=== PATIENT | male | born 1970 ===

== ENCOUNTER → 2018-02-20 | Day surgery (SDC) | payer OTHER ==
[~2018-02-20] MED LIST: COLACE100 MG PO; PERCOCET 5-3251 EACH PO
== END | disposition home or self-care (01) ==
LOC: ADM 02-18 14:15 → CIR.AMB 07:00
DX: A63.0 Anogenital (venereal) warts (principal)

== ENCOUNTER → 2020-01-31 07:26 | Outpatient (CLI) | payer OTHER | END | disposition home or self-care (01) | LOC: LAB 07:26 | PROVIDERS: ATTEND Internal Medicine Hematology & Oncology | DX: D50.8 Other iron deficiency anemias (principal); I10 Essential (primary) hypertension; D51.1 Vitamin B12 deficiency anemia due to selective vitamin B12 malabsorption with proteinuria; D51.8 Other vitamin B12 deficiency anemias; D51.3 Other dietary vitamin B12 deficiency anemia ==

== ENCOUNTER 2020-06-27 07:57 | Outpatient (CLI) | payer OTHER | END 2020-06-27 07:58 | disposition home or self-care (01) | LOC: LAB 07:57 | PROVIDERS: ATTEND Internal Medicine Hematology & Oncology | DX: D63.1 Anemia in chronic kidney disease (principal); N18.2 Chronic kidney disease, stage 2 (mild); D50.8 Other iron deficiency anemias; I10 Essential (primary) hypertension; R74.02 Elevation of levels of lactic acid dehydrogenase [LDH]; K76.89 Other specified diseases of liver; D51.8 Other vitamin B12 deficiency anemias; D59.8 Other acquired hemolytic anemias; D55.0 Anemia due to glucose-6-phosphate dehydrogenase [G6PD] deficiency; D51.3 Other dietary vitamin B12 deficiency anemia ==

== ENCOUNTER 2020-11-04 08:30 | Outpatient (CLI) | payer OTHER | END 2020-11-04 08:44 | disposition home or self-care (01) | LOC: LAB 08:30 | PROVIDERS: ATTEND Internal Medicine Hematology & Oncology | DX: D50.8 Other iron deficiency anemias (principal); R79.89 Other specified abnormal findings of blood chemistry; K76.89 Other specified diseases of liver; I10 Essential (primary) hypertension; R74.02 Elevation of levels of lactic acid dehydrogenase [LDH]; D51.8 Other vitamin B12 deficiency anemias; R97.0 Elevated carcinoembryonic antigen [CEA]; R97.8 Other abnormal tumor markers; D59.8 Other acquired hemolytic anemias; D55.0 Anemia due to glucose-6-phosphate dehydrogenase [G6PD] deficiency; D51.3 Other dietary vitamin B12 deficiency anemia; D51.1 Vitamin B12 deficiency anemia due to selective vitamin B12 malabsorption with proteinuria ==

== ENCOUNTER 2021-05-12 07:21 | Outpatient (CLI) | payer OTHER | END 2021-05-12 07:38 | disposition home or self-care (01) | LOC: LAB 07:21 | PROVIDERS: ATTEND Internal Medicine Hematology & Oncology | DX: D50.8 Other iron deficiency anemias (principal); R79.9 Abnormal finding of blood chemistry, unspecified; I10 Essential (primary) hypertension; R74.02 Elevation of levels of lactic acid dehydrogenase [LDH]; K76.89 Other specified diseases of liver; D51.8 Other vitamin B12 deficiency anemias; D63.1 Anemia in chronic kidney disease; D59.8 Other acquired hemolytic anemias; D55.0 Anemia due to glucose-6-phosphate dehydrogenase [G6PD] deficiency; D51.3 Other dietary vitamin B12 deficiency anemia; D51.1 Vitamin B12 deficiency anemia due to selective vitamin B12 malabsorption with proteinuria; M60.89 Other myositis, multiple sites; M54.12 Radiculopathy, cervical region; M54.14 Radiculopathy, thoracic region; M54.17 Radiculopathy, lumbosacral region ==

== ENCOUNTER 2021-09-08 08:12 | Outpatient (CLI) | payer OTHER | END 2021-09-08 08:14 | disposition home or self-care (01) | LOC: LAB 08:12 | PROVIDERS: ATTEND Internal Medicine Hematology & Oncology | DX: D50.8 Other iron deficiency anemias (principal); R79.9 Abnormal finding of blood chemistry, unspecified; I10 Essential (primary) hypertension; R74.02 Elevation of levels of lactic acid dehydrogenase [LDH]; K76.89 Other specified diseases of liver; D51.8 Other vitamin B12 deficiency anemias; D63.1 Anemia in chronic kidney disease; E53.1 Pyridoxine deficiency; D59.8 Other acquired hemolytic anemias; D55.0 Anemia due to glucose-6-phosphate dehydrogenase [G6PD] deficiency; D21.3 Benign neoplasm of connective and other soft tissue of thorax; D51.1 Vitamin B12 deficiency anemia due to selective vitamin B12 malabsorption with proteinuria ==

== ENCOUNTER 2022-07-13 08:49 | Outpatient (CLI) | payer OTHER | END 2022-07-13 08:53 | disposition home or self-care (01) | LOC: LAB 08:49 | PROVIDERS: ATTEND Internal Medicine Hematology & Oncology | DX: D50.8 Other iron deficiency anemias (principal); R79.9 Abnormal finding of blood chemistry, unspecified; I10 Essential (primary) hypertension; R74.02 Elevation of levels of lactic acid dehydrogenase [LDH]; K76.89 Other specified diseases of liver; D51.8 Other vitamin B12 deficiency anemias; D63.1 Anemia in chronic kidney disease; D59.8 Other acquired hemolytic anemias; D55.0 Anemia due to glucose-6-phosphate dehydrogenase [G6PD] deficiency; D51.3 Other dietary vitamin B12 deficiency anemia; D51.1 Vitamin B12 deficiency anemia due to selective vitamin B12 malabsorption with proteinuria; N39.0 Urinary tract infection, site not specified; N40.1 Benign prostatic hyperplasia with lower urinary tract symptoms ==

== ENCOUNTER 2023-06-06 07:26 | Outpatient (CLI) | payer OTHER ==
[2023-06-06 08:37] LABS: HEMATOCRIT 37.3 % (39.0-48.0); HEMOGLOBIN 13.2 g/dL (13-16.00); MEAN CELL VOLUME 105.1 fL (80.0-100.00); MEAN CORPUSCULAR HEMOGLOBIN 37.3 pg (27.00-32.0); MEAN CORPUSCULAR HGB CONC 35.5 g/dl (32.0-36.0); PLATELET COUNT 205 K/uL (150-450); RED BLOOD COUNT 3.55 M/uL (4.00-6.00); RED CELL DISTRIBUTION WIDTH 12.4 % (11.5-14.5)
[2023-06-06 09:07] LABS: BILIRUBIN TOTAL 0.75 mg/dL (0.3-1.2); CREATININE SERUM 1.16 mg/dL (0.70-1.30); GFR 65.37; GLOBULINA 3.4 G/DL (2.4-3.5); POTASSIUM 4.49 mEq/L (3.5-5.1); PROSTATIC SPECIFIC ANTIGEN 0.519 NG/ML (0.010-4.00); TOTAL PROTEIN 7.4 gm/dL (6.4-8.2)
[2023-06-06 10:35] LABS: FOLIC ACID 13.81 ng/ml (4.78-20)
[2023-06-06 13:41] LABS: MANUAL PLATELET COUNT 432
[2023-06-06 15:18] LABS: PLATELET ESTIMATE NORMAL (NORMAL)
== END 2023-06-06 07:27 | disposition home or self-care (01) ==
LOC: LAB 07:26
PROVIDERS: ATTEND Internal Medicine Hematology & Oncology
DX: D55.0 Anemia due to glucose-6-phosphate dehydrogenase [G6PD] deficiency (principal); D51.3 Other dietary vitamin B12 deficiency anemia; D59.8 Other acquired hemolytic anemias; D51.1 Vitamin B12 deficiency anemia due to selective vitamin B12 malabsorption with proteinuria; D50.8 Other iron deficiency anemias; R79.9 Abnormal finding of blood chemistry, unspecified; K76.89 Other specified diseases of liver; D51.8 Other vitamin B12 deficiency anemias; D63.1 Anemia in chronic kidney disease; R97.20 Elevated prostate specific antigen [PSA]